=== PATIENT | female | born 1960 | race Caucasian/White ===

== ENCOUNTER 2019-01-03 15:07 | Outpatient (REF) | payer OTHER, SELFPAY ==
[2019-01-03 22:59] LABS: TSH (W/Ref FT4) 1.05 uIU/mL (0.358-3.74)
== END 2019-01-03 15:27 ==
LOC: NCHCN 15:07
PROVIDERS: PCP Nurse Practitioner Family; Visit Provider Registered Nurse
DX: E03.9 Hypothyroidism, unspecified (principal)
CPT/HCPCS: 84443

== ENCOUNTER 2019-04-10 15:32 | Outpatient (REF) | payer BC, SELFPAY ==
[2019-04-10 22:18] LABS: ALT 33 U/L (12-78); AST 22 U/L (15-37); Albumin 3.5 g/dL (3.4-5.0); Alkaline Phosphatase 109 U/L (46-116); Anion Gap 8.8 mmol/L (3-11); BUN 16 mg/dL (7-18); Bilirubin, Total 0.2 mg/dL (0.2-1.0); CO2 27.2 mmol/L (21.0-32.0); CREATININE 0.73 mg/dL (0.55-1.02); Calcium 9.7 mg/dL (8.5-10.1); Calculated LDL 104; Chloride 106 mmol/L (98-107); Cholesterol 179 mg/dL (50-200); Glucose 100 mg/dL (70-100); HDL Cholesterol 38 mg/dL (40-60); Potassium 4.7 mmol/L (3.5-5.1); Sodium 142 mmol/L (136-145); Total Protein 7.5 g/dL (6.4-8.2); Triglyceride 187 mg/dL (30-150)
== END 2019-04-10 15:52 ==
LOC: NCHCN 15:32
PROVIDERS: PCP Nurse Practitioner Family; Visit Provider Registered Nurse
DX: Z00.00 Encounter for general adult medical examination without abnormal findings (principal); F41.9 Anxiety disorder, unspecified; R53.83 Other fatigue
CPT/HCPCS: 80053; 80061; 83721

== ENCOUNTER 2020-01-09 17:55 | Outpatient (REF) | payer BC, SELFPAY ==
[2020-01-09 20:35] LABS: TSH 1.83 uIU/mL (0.36-3.74)
[2020-01-11 10:08] LABS: Hepatitis C Ab w Rflx HCV PCR Negative (Negative)
[2020-01-15 10:55] LABS: HBs Antibody, Quant 12.9 mIU/mL (See Note); Hepatitis B Surface Ab Positive (See Note)
== END 2020-01-09 18:15 ==
LOC: NCHCN 17:55
PROVIDERS: PCP Nurse Practitioner Family; Visit Provider Nurse Practitioner Family
DX: E03.9 Hypothyroidism, unspecified (principal); Z11.59 Encounter for screening for other viral diseases
CPT/HCPCS: 86706; 86803; 84443

== ENCOUNTER 2020-08-22 17:02 | Outpatient (REF) | payer BC, SELFPAY ==
[2020-08-22 21:14] LABS: ALT 26 U/L (14-59); AST 18 U/L (15-37); Albumin 3.5 g/dL (3.4-5.0); Alkaline Phosphatase 105 U/L (46-116); Anion Gap 6.3 mmol/L (3-11); BUN 16 mg/dL (7-18); Bilirubin, Total 0.2 mg/dL (0.2-1.0); CO2 28.7 mmol/L (21.0-32.0); CREATININE 0.88 mg/dL (0.55-1.02); Calcium 8.8 mg/dL (8.5-10.1); Calculated LDL 104 mg/dL (<100); Chloride 104 mmol/L (98-107); Cholesterol 187 mg/dL (<200); Glucose 131 mg/dL (74-106); HDL Cholesterol 41 mg/dL (40-60); Potassium 4.1 mmol/L (3.5-5.1); Sodium 139 mmol/L (136-145); TSH 0.98 uIU/mL (0.36-3.74); Total Protein 7.3 g/dL (6.4-8.2); Triglyceride 214 mg/dL (<150)
== END 2020-08-22 17:22 ==
LOC: NCHCN 17:02
PROVIDERS: PCP Nurse Practitioner Family; Visit Provider Nurse Practitioner Family
DX: Z00.00 Encounter for general adult medical examination without abnormal findings (principal)
CPT/HCPCS: 80053; 80061; 84443

== ENCOUNTER 2021-02-21 18:28 | Outpatient (REF) | payer BC, SELFPAY ==
[2021-02-21 14:09] LABS: ALT 21 U/L (14-59); AST 12 U/L (15-37); Albumin 3.3 g/dL (3.4-5.0); Alkaline Phosphatase 94 U/L (46-116); Anion Gap 8.6 mmol/L (3-11); BUN 15 mg/dL (7-18); Bilirubin, Total 0.3 mg/dL (0.2-1.0); CO2 28.4 mmol/L (21.0-32.0); CREATININE 0.8 mg/dL (0.55-1.02); Calcium 9.1 mg/dL (8.5-10.1); Calculated LDL 100 mg/dL (<100); Chloride 106 mmol/L (98-107); Cholesterol 170 mg/dL (<200); Glucose 95 mg/dL (74-106); HDL Cholesterol 45 mg/dL (40-60); Potassium 4.4 mmol/L (3.5-5.1); Sodium 143 mmol/L (136-145); TSH 1.22 uIU/mL (0.36-3.74); Triglyceride 127 mg/dL (<150)
[2021-02-21 15:27] LABS: Hemoglobin A1C 5.9 % (<5.7)
== END 2021-02-21 18:29 | disposition home or self-care (01) ==
LOC: NCHCN 18:28
PROVIDERS: PCP Nurse Practitioner Family; Visit Provider Nurse Practitioner Family
DX: Z00.00 Encounter for general adult medical examination without abnormal findings (principal); E03.9 Hypothyroidism, unspecified; E78.5 Hyperlipidemia, unspecified; R73.03 Prediabetes
CPT/HCPCS: 80053; 80061; 83036; 84443

== ENCOUNTER 2021-10-20 08:41 | Outpatient (REF) | payer BC, SELFPAY ==
--- NOTE | 2021-10-20 08:15 | PAPFT_PTH ---
PATIENT: Omaira Calderon LOC: [facility]#:[id number] AGE/SX: 61/F ROOM: RE10/20/[address]: Maude Forde : 1960 BED: DIS: 10/20/2021 SPEC #: [id number] RECD: 10/20/21 18:31 STATUS: FANY REQ #: [id number] LAKEISHA: 10/20/21 08:[address]: Maude Forde DEPT: [facility] Cytology RECD BY: Yoli Whiting Tissues: 1 - CX/ENDOCX FOR PAP SMEARS Procedures: PAP THIN PREP/[facility] Screening HPV DNA PROBE Comments: [id number]
== END 2021-10-20 08:42 | disposition home or self-care (01) ==
LOC: NCHCN 08:41
PROVIDERS: PCP Nurse Practitioner Family; Visit Provider Nurse Practitioner Family
DX: Z12.4 Encounter for screening for malignant neoplasm of cervix (principal); Z11.51 Encounter for screening for human papillomavirus (HPV)
CPT/HCPCS: 88142; 87624